=== PATIENT | female | born 1965 | race Caucasian/White ===

== ENCOUNTER 2022-09-08 08:39 | Outpatient (CLI) | payer BC, SELFPAY ==
[2022-09-08 13:46] LABS: Chloride* 107 mmol/L (96-114); Potassium* 4.2 mmol/L (3.6-5.1); Sodium* 142 mmol/L (135-149)
[2022-09-08 13:49] LABS: Carbon Dioxide* 28 mmol/L (20-32); Creatinine* 0.7 mg/dL (0.5-1.5); Estimated Glomerular Filt Rate 102 ml/min
[2022-09-08 13:50] LABS: Blood Urea Nitrogen* 15 mg/dL (7-30); Glucose* 86 mg/dL (60-115)
== END 2022-09-08 08:40 | disposition home or self-care (01) ==
PROVIDERS: PCP Family Medicine; Visit Provider Family Medicine
DX: E03.9 Hypothyroidism, unspecified (principal)
CPT/HCPCS: 80048; 84443

== ENCOUNTER 2023-04-20 08:02 | Outpatient (CLI) | payer BC, SELFPAY | END 2023-04-20 08:03 | disposition home or self-care (01) | LOC: NFLDREF 04-21 11:33 | PROVIDERS: PCP Family Medicine; Referring Provider Family Medicine; Visit Provider Family Medicine | DX: E03.9 Hypothyroidism, unspecified (principal) | CPT/HCPCS: 84443 ==